=== PATIENT | female | born 1980 | race Two or more races ===

== ENCOUNTER → 2017-01-19 | Outpatient (CLI) | payer OTHER ==
[2017-01-19 18:04] LABS: T3 TOTAL 1.12 ng/mL
[2017-01-19 18:05] LABS: FREE T4 1.39 ng/dL (0.76-1.46)
== END | disposition home or self-care (01) ==
LOC: LB 16:25
PROVIDERS: Internal Medicine Endocrinology, Diabetes & Metabolism
DX: E04.1 Nontoxic single thyroid nodule (principal); M43.26 Fusion of spine, lumbar region
CPT/HCPCS: 84439

== ENCOUNTER → 2017-07-08 | Outpatient (CLI) | payer OTHER | END | disposition home or self-care (01) | LOC: US 07-02 09:00 | PROC: BG44ZZZ Ultrasonography of Thyroid Gland (ICD-10-PCS; principal; 2017-07-08) | DX: E04.1 Nontoxic single thyroid nodule (principal) ==

== ENCOUNTER → 2017-11-16 | Outpatient (CLI) | payer OTHER | END | disposition home or self-care (01) | LOC: US 13:43 | PROC: BG44ZZZ Ultrasonography of Thyroid Gland (ICD-10-PCS; principal; 2017-11-16) | DX: E04.1 Nontoxic single thyroid nodule (principal) ==